=== PATIENT | female | born 1990 | race Caucasian/White ===

== ENCOUNTER 2018-01-20 21:22 | Emergency (ER) | payer OTHER ==
[~2018-01-20] VITALS: Ht 162.6 cm; Wt 52.2 kg
--- OUTSIDE RECORDS SUMMARY | 2018-01-20 21:54 | XMS ---
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 Jeri VISIT COUNT (12 MO.) Liliya Lanier [address] [place] [address] TOTAL 8 NOTE: Visits indicate total known visits. ED/UCC VISIT TRACKING (12 MO.) 01/20/2018 21:[address] [facility] [place] TYPE: Emergency COMPLAINT: - POSS INFECTION ON FACE 12/25/2017 07:12 [facility] [place] TYPE: Emergency DIAGNOSES: - MRSA - Cellulitis of left finger - Finger Swelling 12/05/2017 15:08 [facility] [place] TYPE: Emergency DIAGNOSES: - Cellulitis of right finger - Finger Injury 11/14/2017 20:24 [facility] [place] TYPE: Emergency DIAGNOSES: - Left side Pain - Rib Pain - Fracture of one rib, left side, initial encounter for closed fracture - Contusion of left front wall of thorax, initial encounter 10/29/2017 19:13 [facility] [place] TYPE: Emergency DIAGNOSES: - Right hand injury - Finger Swelling - Effusion, right hand 05/30/2017 17:19 [facility] [place] TYPE: Emergency DIAGNOSES: - Head Complaint - Strain of muscle, fascia and tendon at neck level, initial encounter - Neck Pain 04/24/2017 11:32 [facility] [place] TYPE: Emergency DIAGNOSES: - Strain of muscle, fascia and tendon of lower back, initial encounter - Back Pain 02/08/2017 16:20 [facility] [place] TYPE: Emergency COMPLAINT: - Nose Complaint DIAGNOSES: 0. Procedure and treatment not carried out due to patient leaving prior to being seen by health care provider 1. Procedure and treatment not carried out due to patient leaving prior to being seen by health care provider INPATIENT VISIT TRACKING (12 MO.) No inpatient visits to display in this time frame [email or web address]
[2018-01-20] MEDS ORDERED: LAMOTRIGINE25 MG PO (22:12)
[2018-01-20] MEDS ORDERED: BACTRIM DS TAB1 EACH PO (23:18)
[2018-01-20] MEDS ORDERED: CEPHALEXIN500 MG PO (23:18)
[2018-01-20] MEDS ORDERED: TRAMADOL HCL50 MG PO (23:18)
== END 2018-01-20 23:41 | disposition home or self-care (01) ==
LOC: ED 21:22
DX: L03.211 Cellulitis of face (principal); F17.200 Nicotine dependence, unspecified, uncomplicated; Z88.0 Allergy status to penicillin; Z79.899 Other long term (current) drug therapy
CPT/HCPCS: 99283

== ENCOUNTER 2024-06-25 12:47 | Emergency (ER) | payer OTHER ==
[~2024-06-25] VITALS: Ht 162.6 cm; Wt 61.7 kg
[~2024-06-25 12:47] MED LIST: BACTRIM DS TAB1 EACH PO; CEPHALEXIN500 MG PO; LAMOTRIGINE25 MG PO; TRAMADOL HCL50 MG PO
[2024-06-25] MEDS ORDERED: SERTRALINE HCL100 MG PO (13:11)
[2024-06-25] MEDS ORDERED: ARIPIPRAZOLE10 MG PO (13:11)
[2024-06-25] MEDS ORDERED: LISDEXAMFETAMIN PO (13:11)
[2024-06-25] MEDS ORDERED: HYDROmorphone HCL 1 MG/ML SYR IV ONE (13:30)
[2024-06-25] MEDS ORDERED: SODIUM CHLORIDE 0.9% 1,000 ML IV PRN (13:30)
[2024-06-25] MEDS ORDERED: ondansetron HCL 4 MG/2 ML VIAL IV ONE (13:30)
[2024-06-25 14:14] LABS: BASOPHILS 0.5 % (0-2); EOSINOPHILS 0.7 % (0-6); HEMATOCRIT 38.5 % (35.0-50.0); HEMOGLOBIN 12.6 g/dL (12.0-18.0); LYMPHOCYTES 12.9 % (24-44); MCH 27.2 (27-36); MCHC 32.7 g/dl (30-36); MCV 83.4 fl (81-99); MONOCYTES 6.7 % (0-12); NEUTROPHILS 79.2 % (39-80); PLATELET COUNT 275 K/uL (140-440); RBC 4.62 M/ul (4.3-5.7); RDW 13.9 (10.5-15.0)
[2024-06-25 14:24] LABS: ANION GAP 13.9 (7-21); BUN/CREATININE RATIO 10.14 (6.0-28.6); CALCIUM 9.3 mg/dL (8.5-10.1); CREATININE, SERUM 0.69 mg/dL (0.55-1.02); POTASSIUM 3.9 mmol/L (3.5-5.1)
[2024-06-25] MEDS ORDERED: ONDANSETRON ODT4 MG PO (16:26)
[2024-06-25] MEDS ORDERED: IMITREX25 MG PO (16:26)
[2024-06-25 16:39] VITALS: BP 120/78
== END 2024-06-25 16:40 | disposition home or self-care (01) ==
LOC: ED 12:47
PROVIDERS: Emergency Medicine
DX: R51.9 Headache, unspecified (principal); F31.9 Bipolar disorder, unspecified; F17.200 Nicotine dependence, unspecified, uncomplicated; Z88.0 Allergy status to penicillin; Z88.5 Allergy status to narcotic agent; Z79.899 Other long term (current) drug therapy
CPT/HCPCS: 36415; 70450; 80048; 82375; 85025; 96374; 96375; 99284-25; J1171; J2405; J7030